=== PATIENT | female | born 1960 | race African-American/Black ===

== ENCOUNTER 2018-03-08 13:50 | Inpatient (IN) | payer OTHER ==
[~2018-03-08] VITALS: Ht 152.4 cm; Wt 103.6 kg
[2018-03-08] MEDS ORDERED: SODIUM CHLORIDE 0.9% 1,000 ML IV ONE (13:57)
[2018-03-08] MEDS ORDERED: ONDANSETRON HCL 4MG/2ML VIAL IV ONE (14:00)
[2018-03-08] MEDS ORDERED: SODIUM CHLORIDE 0.9% 1000ML BAG (SEPSIS BOLUS) IV ONE (14:30)
[2018-03-08 14:40] LABS: BG BASE EXCESS -2.1 mmol/L (-2.0-2.0); BG CARBOXYHEMOGLOBIN 0.8 % (0.5-1.5); BG DEOXYHEMOGLOBIN 4.5 % (0.0-5.0); BG HCO3 ACT 19.5 mmol/L (22.0-26.0); BG METHEMOGLOBIN 0.1 % (0.0-1.5); BG OXYGEN SATURATION 95.5 % (92.0-98.5); BG OXYHEMOGLOBIN 94.6 % (94.0-97.0); BG PH 7.494 (7.350-7.450); BG PO2 74.5 mmHg (75.0-100.0); BG SAMPLE SITE RIGHT RADIAL; BG TOTAL HEMOGLOBIN 14.2 g/dL (12.0-18.0); BG VENT MODE ROOM AIR
[2018-03-08 14:44] LABS: BASOPHILS % 0.6 % (0.0-2.0); EOSINOPHILS % 0.1 % (0.0-5.0); HEMATOCRIT. 39.3 % (36.0-48.0); HEMOGLOBIN. 13.2 g/dL (12.0-16.0); LYMPHOCYTES % 13.5 % (20.0-50.0); MEAN CORPUSCULAR HEMOGLOBIN 27.5 pg (28.0-32.0); MEAN CORPUSCULAR VOLUME 81.5 fL (81.0-99.0); MEAN PLATELET VOLUME 8.7 fl (7.4-10.4); MONOCYTES % 12.9 % (2.0-8.0); NEUTROPHILS % 72.9 % (40.0-76.0); PLATELET 228 x1000/uL (130-400); RED BLOOD CELL COUNT 4.82 mill/uL (4.2-5.4); RED CELL DISTRIBUTION WIDTH 14.4 % (11.6-14.6)
[2018-03-08 14:48] LABS: INR 1.1
[2018-03-08 14:49] LABS: CHLORIDE 103 mEq/L (98-107)
[2018-03-08 14:57] LABS: CREATINE KINASE 248 IU/L (26-192)
[2018-03-08 15:00] LABS: CREATINE KINASE MB FRACTION 0.8 ng/mL (0.5-3.6)
[2018-03-08] MEDS ORDERED: IOHEXOL-350 100 ML BOTTLE ONE (16:11)
[2018-03-08] MEDS ORDERED: LEVOFLOXACIN 750MG PREMIX 150 ML IV ONE (16:15)
[2018-03-08 16:20] LABS: CLARITY URINE CLEAR (CLEAR); COLOR URINE YELLOW (YELLOW); KETONES URINE NEGATIVE (NEGATIVE); LEUKOCYTE ESTERASE URINE NEGATIVE (NEGATIVE); NITRITE URINE NEGATIVE (NEGATIVE); OCCULT BLOOD URINE 1+ (NEGATIVE); PROTEIN URINE NEGATIVE (NEGATIVE); SPECIFIC GRAVITY URINE 1.033 (1.005-1.030)
[2018-03-08 16:42] LABS: *AMPHETAMINES SCREEN URINE NEGATIVE (NEGATIVE); *BARBITURATES SCREEN URINE NEGATIVE (NEGATIVE); *BENZODIAZEPINES SCREEN URINE NEGATIVE (NEGATIVE); *COCAINE SCREEN URINE NEGATIVE (NEGATIVE); METHADONE URINE SCREEN NEGATIVE (NEGATIVE)
[2018-03-08 16:43] LABS: CANNABINOID URINE SCREEN NEGATIVE (NEGATIVE); OPIATES URINE SCREEN NEGATIVE (NEGATIVE); PHENCYCLIDINE URINE SCREEN NEGATIVE (NEGATIVE)
[2018-03-08] MEDS ORDERED: MAGNESIUM/ALUMINUM HYDROXIDE/SIMETHICONE 30ML UDC PO PRN (16:45)
[2018-03-08] MEDS ORDERED: CLONIDINE 0.1MG TABLET PO PRN (16:45)
[2018-03-08] MEDS ORDERED: ONDANSETRON HCL 4MG/2ML VIAL IV PRN (16:45)
[2018-03-08] MEDS ORDERED: HYDROCODONE/ACETAMINOPHEN 10/325MG TABLET PO PRN (16:45)
[2018-03-08] MEDS ORDERED: IPRATROPIUM/ALBUTEROL 0.5-3(2.5)MG/3ML NEB INH PRN (16:45)
[2018-03-08] MEDS ORDERED: DOCUSATE SODIUM 100MG CAPSULE PO PRN (16:45)
[2018-03-08] MEDS ORDERED: DIPHENHYDRAMINE 50MG/ML VIAL IV PRN (16:45)
[2018-03-08] MEDS ORDERED: HYDROCODONE/ACETAMINOPHEN 5/325MG TABLET PO PRN (16:45)
[2018-03-08] MEDS ORDERED: ACETAMINOPHEN 650MG SUPP PR PRN (16:45)
[2018-03-08] MEDS ORDERED: ACETAMINOPHEN 650MG/20.3ML UDC GT PRN (16:45)
[2018-03-08] MEDS ORDERED: GUAIFENESIN 200MG/10ML SUGAR FREE UDC PO PRN (16:45)
[2018-03-08 20:00] VITALS: BP 150/71
[2018-03-08] MEDS: ACETAMINOPHEN 325MG TABLET PO PRN (20:51)
[2018-03-08] MEDS ORDERED: CEFTRIAXONE 1 G PREMIX 50 ML IV SCH (21:00)
[2018-03-08] MEDS ORDERED: NA PHOS,M-B/NA PHOS,DI-BA ENEMA 118ML PR PRN (21:00)
[2018-03-08] MEDS: DEXT 5%/0.45% NACL 1000ML 1,000 ML IV SCH (21:23)
[2018-03-08] MEDS: ENOXAPARIN 30MG/0.3ML SYR SUBCUT SCH (21:23)
[2018-03-08] MEDS: SODIUM CHLORIDE 0.9% INJ 3ML FLUSH IVF SCH (21:24)
[2018-03-08 22:00] VITALS: BP 118/56
[2018-03-09] VITALS (10 sets, daily range): BP systolic 110–146; BP diastolic 62–84
[2018-03-09] MEDS: ACETAMINOPHEN 325MG TABLET PO PRN ×3 (03:03→15:35)
[2018-03-09] MEDS: SODIUM CHLORIDE 0.9% INJ 3ML FLUSH IVF SCH ×2 (06:21→12:57)
[2018-03-09 07:29] LABS: HEMATOCRIT. 36.4 % (36.0-48.0); HEMOGLOBIN. 11.7 g/dL (12.0-16.0); MEAN CORPUSCULAR HEMOGLOBIN 26.7 pg (28.0-32.0); MEAN CORPUSCULAR VOLUME 82.8 fL (81.0-99.0); MEAN PLATELET VOLUME 9.2 fl (7.4-10.4); PLATELET 219 x1000/uL (130-400); RED BLOOD CELL COUNT 4.39 mill/uL (4.2-5.4); RED CELL DISTRIBUTION WIDTH 14.5 % (11.6-14.6)
[2018-03-09 07:37] LABS: CHLORIDE 107 mEq/L (98-107)
[2018-03-09 07:46] LABS: HDL CHOLESTEROL 40 mg/dL (40-59)
[2018-03-09 07:48] LABS: LDL CHOLESTEROL 84 mg/dL (5-100)
[2018-03-09 08:19] LABS: PLATELET ESTIMATE NORMAL
[2018-03-09] MEDS: DEXT 5%/0.45% NACL 1000ML 1,000 ML IV SCH (09:12)
[2018-03-09] MEDS: ENOXAPARIN 30MG/0.3ML SYR SUBCUT SCH (09:12)
[2018-03-09] MEDS ORDERED: SODIUM CHLORIDE 0.9% 1,000 ML IV SCH (10:30)
[2018-03-09] MEDS ORDERED: CYCLOBENZAPRINE 10MG TABLET PO NR (10:30)
[2018-03-09] MEDS ORDERED: IPRATROPIUM/ALBUTEROL 0.5-3(2.5)MG/3ML NEB HHN SCH (12:30)
[2018-03-09] MEDS ORDERED: AZITHROMYCIN 500 MG in DEXT 5% WATER 250 ML IV SCH (14:00)
[2018-03-09] MEDS ORDERED: CEFTRIAXONE 1 G PREMIX 50 ML IV SCH (20:00)
== END 2018-03-09 15:25 | disposition short-term general hospital (02) | DRG 871 ==
LOC: ER 14:07 → 3WST 16:12 → EDBEDREQ 16:14 → EDBEDREQTM 16:14 → ENRESERV 16:35
PROVIDERS: ADMIT Family Medicine; ATTEND Family Medicine
DX: A41.9 Sepsis, unspecified organism (principal); J18.9 Pneumonia, unspecified organism; J96.00 Acute respiratory failure, unspecified whether with hypoxia or hypercapnia; E44.0 Moderate protein-calorie malnutrition; E87.3 Alkalosis; Z68.41 Body mass index [BMI] 40.0-44.9, adult; D64.9 Anemia, unspecified; F17.210 Nicotine dependence, cigarettes, uncomplicated; Z90.710 Acquired absence of both cervix and uterus; Z95.1 Presence of aortocoronary bypass graft
CPT/HCPCS: 36415; 36600; 70450; 71045; 71275; 74018; 80053; 80061; 80305; 81003; 82375; 82550; 82553; 82805; 82962; 83605; 83690; 83880; 84484; 85025; 85610; 87040; 87086; 96374; 96375; 99291; J0456; J0696; J1650; J1956; J2405; J7030; J7060; J7620; Q9967